=== PATIENT | male | born 1940 | race Caucasian/White ===

== ENCOUNTER → 2020-06-04 | Outpatient (CLI) | payer OTHER ==
[~2020-06-04] MED LIST: ASA81BEC PO; CLARITIN10 M3 PO; EFFIENT10 MG PO; LISINOPRIL5 MG PO; LUTEIN10 MG PO; MAGNESIUM400 MG PO; ROSUVASTATIN CA20 MG PO; SAW PALMETTO160 MG PO
== END ==
LOC: SJCVCIMAG 13:41
PROVIDERS: ATTEND Nuclear Medicine Nuclear Cardiology
DX: I65.23 Occlusion and stenosis of bilateral carotid arteries (principal); I10 Essential (primary) hypertension; E78.00 Pure hypercholesterolemia, unspecified; I77.9 Disorder of arteries and arterioles, unspecified; Z79.82 Long term (current) use of aspirin; Z79.899 Other long term (current) drug therapy

== ENCOUNTER 2020-06-06 10:28 | Observation (INO) | payer OTHER ==
[~2020-06-06] VITALS: Ht 182.9 cm; Wt 112.5 kg
[2020-06-06 11:08] VITALS: BP 144/79
[2020-06-06] MEDS ORDERED: ASA81BEC PO (11:17)
[2020-06-06] MEDS ORDERED: CLARITIN10 M3 PO (11:18)
[2020-06-06] MEDS ORDERED: LISINOPRIL5 MG PO (11:18)
[2020-06-06] MEDS ORDERED: MAGNESIUM400 MG PO (11:19)
[2020-06-06] MEDS ORDERED: LUTEIN10 MG PO (11:19)
[2020-06-06] MEDS ORDERED: SAW PALMETTO160 MG PO (11:20)
[2020-06-06] MEDS ORDERED: ROSUVASTATIN CA20 MG PO (11:20)
[2020-06-06 11:21] LABS: HEMATOCRIT 45.2 % (42.0-52.0); HEMOGLOBIN 14.9 gm/dL (14.0-18.0); MCH 31.5 pg (26.0-34.0); MCHC 32.9 g/dL (28.0-37.0); MCV 95.8 fL (80.0-100.0); RBC 4.72 mil/uL (4.50-6.00); RDW 14.8 % (10.5-14.5); WBC 6.1 thou/uL (4.0-11.0)
[2020-06-06 11:30] LABS: CALCIUM 9.3 mg/dL (8.5-10.1); CREATININE 1.2 mg/dL (0.7-1.3); POTASSIUM 4.8 mmol/L (3.5-5.1)
[2020-06-06 17:00] VITALS: BP 136/78
[2020-06-06 17:12] LABS: ALBUMIN 3.3 g/dL (3.4-5.0); CALCIUM 8.7 mg/dL (8.5-10.1); CREATININE 1.1 mg/dL (0.7-1.3); POTASSIUM 4.2 mmol/L (3.5-5.1); TOTAL BILIRUBIN 0.5 mg/dL (0.2-1.0); TOTAL PROTEIN 6.4 g/dL (6.4-8.2)
[2020-06-06 17:14] LABS: APTT 28.5 Seconds (24.5-32.8); PROTIME 10.9 Seconds (9.3-11.4)
--- NOTE | 2020-06-06 17:57 | NUR ---
PT ADMITTED TO CCU AT 1650 FROM CARDIAC FUR [facility]ISHER SEAM[facility]ESS. RIGHT GROIN SITE IS C/D/I, PT AND FAMILY HAVE BEEN EDUCATED ON S/S THAT NEED TO BE BROUGHT TO NURSE. PT ON BEDREST UNTIL 1900. PLAN IS TO DC HOME TONIGHT. STENTS TO BE COMPLETED BY DR GONZALEZ NEXT WEEK. AND DR BARRAZA AFTER THAT. NEEDS 2 VIEW CXR BEFORE BEING DISCHARGED. PT AND DAUGHTER HAVE BEEN UPDATED AND EDUCATED ON PT CONDITION AND POC. PT PROGRESSING TOWARDS POC.
[2020-06-06 20:30] VITALS: BP 149/85
--- NOTE | 2020-06-07 01:12 | NUR ---
VERBAL ORDER RECEIVED FOR DISCHARGE FROM DR. GONZALEZ; PATIENT VERBALIZED UNDERSTANDING OF POST-CATH INSTRUCTIONS; PATIENT PROVIDED TELEPHONE NUMBER TO FOR FOLLOW-UP WITH CARDIOLOGY; PATIENT PERIPHERAL IV REMOVED WITHOUT COMPLICATIONS; RT GROIN SITE C/D/I AND NO HEMATOMA OR PAIN NOTED ON PALPATION; PATIENT STABLE AND DRESSED AND AMBULATED INDEPENDENTLY TO WHEELCHAIR AND ESCORTED BY RN TO PATIENT FAMILY MEMBER WAITING AT ED ENTRANCE.
--- NOTE | 2020-06-07 07:11 | EKG ---
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: SBULGINA : 1940 Requested By: Helio Mccann Order Number: [id number] : Jose Luis Armijo Measurements Intervals [place] Rate: 82 P: 53 IA: 147 QRS: 50 QRSD: 92 T: 37 QT: 377 QTc: 441 Interpretive Statements Sinus rhythm Compared to ECG 09/14/1992 22:55:00 T-wave abnormality no longer present Electronically Signed On 06-07-2020 7:10:52 MACHINE FARMWORKER by Jose Luis Armijo [email or web address] <ELECTRONICALLY SIGNED> By: Jose Luis Armijo MD, [facility] 06/07/20 0710 1101 00 Jose Luis Armijo MD, FACC /EPI
--- NOTE | 2020-06-09 08:24 | HC ---
[facility] [place] [address] CONSULTATION Name: SARAH SHEPHERD Room #: 217-P [facility] Violeta Finn#: [id number] Admission: 06/06/20 Attend Phys: Helio Mccann MD Discharge: 06/06/20 Date of : 40 Report #: [id number] THIS REPORT FOR: cc: Scott Almazan James R. DO Forman, John M. MD ~ DATE OF SERVICE: 06/06/2020 We are asked to see the patient by Dr. Mccann and Dr. Root. HISTORY OF PRESENT ILLNESS: The patient is a 79-year-old who states he initially had a vascular screening that showed a high-grade carotid stenosis. This led to carotid and cardiac catheterization today. The patient denies such problems as transient ischemic attack or stroke or amaurosis fugax. The patient states that he is less robust than he was in his younger days and does get some fatigue with exertion, but has no history of angina. Today, the carotid arteriogram demonstrates a 90% left internal carotid stenosis, somewhat distant from the bifurcation. The coronary angiogram shows proximal LAD stenosis, circumflex marginal 1 and 2 lesions along with some distal disease in the LAD, PDA, and posterolateral. Left ventricular function is satisfactory by ventriculogram. PAST HISTORY: The patient has hypertension. He denies diabetes mellitus. SOCIAL HISTORY: The patient is an active [place]. No smoking history. MEDICATIONS: Includes Flonase nasal spray, lisinopril, Claritin, Lutein, magnesium oxide, and rosuvastatin. The patient had an arm infection, on which he was applying mupirocin. REVIEW OF SYSTEMS: GENERAL: Denies significant change in weight, fevers. EYES: Denies recent vision change. ENT: Denies hearing loss or chronic sinus issues. CARDIAC: As mentioned, some mild fatigue with exertion, but this is not limiting. No angina, no palpitations. RESPIRATORY: Denies cough or shortness of breath. GASTROINTESTINAL: Denies nausea, vomiting, or blood in stool. GENITOURINARY: Denies urgency or frequency. Takes saw angeline for prostate issues and has for 30 years. MUSCULOSKELETAL: No new bone or joint problems. 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 This does appear to be healing. ENDOCRINE: No goiter, no tremor. NEUROLOGIC: No motor or sensory dysfunction. HEMATOLOGIC: No bruisability or bleeding. PHYSICAL EXAMINATION: GENERAL: The patient is lying in bed, post-catheterization. Blood pressure 130/70, heart rate 96. HEENT: No scleral icterus, no arcus. NECK: No mass. I hear no bruit. CHEST: Clear to auscultation. HEART: Rhythm regular, no murmur. ABDOMEN: Soft. EXTREMITIES: No clubbing, cyanosis, or edema. 2+ posterior tibial pulses bilaterally, 2+ popliteal pulses bilaterally. PSYCHIATRIC: Shows insight into problem. Oriented x 3 and is appropriate. ASSESSMENT AND PLAN: I reviewed the catheterization findings with the patient and his daughter. There is important coronary artery disease including the proximal LAD and circumflex marginal lesions. The tight left internal carotid lesion was also discussed. The carotid lesion is amenable to trans-carotid arterial revascularization and this may even be preferable with more distant extent of the lesion. Risks and details of this were discussed. Options and alternatives were reviewed. I also discussed the coronary disease and the options for treatment. This would include bypass surgery or angioplasty. Angioplasty may not address the more distal LAD issue, but it certainly would treat the proximal LAD and the circumflex marginal lesions; and in light of the patient's paucity of symptoms and advanced age, this may be appropriate. Prior to TCAR, we need to have the patient on aspirin, Plavix, and statin. The patient will be on the statin after the stent placement and so we could plan for TCAR 5-7 days after coronary stents are placed. All of this will be reviewed by and with Dr. Mccann and Dr. Root, so that we can formulate a plan. Thank you for the consult. <ELECTRONICALLY SIGNED> By: Rm Ramon MD 06/09/20 0824 1628 1715 Rm Ramon MD /nt
--- NOTE | 2020-06-09 15:17 | CATHLAB ---
[facility] [place] [address] INVASIVE PROCEDURE REPORT Name: SARAH SHEPHERD Room #: 217-P [facility] Violeta Finn#: [id number] Admission: 06/06/20 Attend Phys: Helio Mccann MD Discharge: 06/06/20 Date of : 40 Report #: [id number] THIS REPORT FOR: cc: Scott Almazan James R. DO Mancuso, Gerald M. MD [facility] ~ APPROVED REPORT Study performed: 06/06/2020 14:37:46 Patient Details Patient Status: Out-Patient Room #: The patient is a 79 year-old male Event Personnel Helio Mccann Radiologist, Deon Root Linemarker, Reji Chávez RN, Marilyn Lara RTR Ilya, Lyn Miner Monitor Procedures Performed Left Heart Cath w/or w/o Coronaries [id number] [facility] 58808 Initial Mod Sed Same Phys/QHP Gr 215522 10272 Mod Sed Same Phys/QHP Ea 779777 Hemostasis w/ Mynx Indication Chest pain Procedure Narrative A SHEATH BRITE-TIP 6F X 11CM ([id number]) sheath was inserted into the RFA^. Coronary angiography was performed using coronary diagnostic catheters. The right coronary system was accessed and visualized with a JR4 catheter. The left coronary system was accessed and visualized with a JL4 catheter. The left ventricle was accessed and visualized with a ANGLE PIG catheter. Left ventriculogram was performed in 30 degree projection. There was no hematoma. Intraoperative Conscious Sedation Sedation start time: 1510 Case end Time: 1535 Fentanyl 100 mcg Versed 2 mg Fluoro Time: 7.30 minutes Dose: DAP 48335.40 cGycm2 299. mGy Contrast Type and Amount: Omnipaque 253 ml [facility] [place] [address] INVASIVE PROCEDURE REPORT Name: JOAOSARAH Bautista Room #: 217-P [facility]#: [id number] Admission: 06/06/20 Attend Phys: Helio Mccann, Discharge: 06/06/20 Date of : 40 Report #: [id number] Hemodynamics The aortic pressure is 137/67 mmHg with a mean of 97 mmHg. The left ventricular pressure is 146/12 mmHg with a mean of mmHg. The left ventricular end diastolic pressure is 20 mmHg. Conclusion #1. Normal left ventricular size systolic function lower limits of normal EF 50 to 55%. #2 left main mildly disease giving rise to LAD and circumflex. 40 to 50% ostial left main lesion noted #3 the LAD is an eccentric 80% lesion just off the left main with mild calcification. This vessel is and moderately diseased in its midsection 60 and 70% diffuse disease somewhat attenuated to the apex. #4 circumflex OM is nondominant but large in distribution. The first OM branch has a high-grade lesion of 80 to 90% and then the mid circumflex after that OM takeoff which fills the distal OM has a 95% eccentric lesion. Mild calcification is noted. #5 dominant right coronary artery with mild disease 3040% mid vessel mild disease in the PDA DILCIA Recommendations and plan: Continue aggressive risk factor modification. Will need CV surgical consultation consideration of bypass versus revascularization by coronary stent. Also patient with high-grade carotid stenosis further recommendations to follow. <ELECTRONICALLY SIGNED> By: Deon Root MD, FACC 06/09/20 1517 1517 1517 Deon Root MD, FACC /INF
== END 2020-06-06 20:20 | disposition home or self-care (01) ==
LOC: CATH 10:28 → 2N 16:43
PROVIDERS: Surgery Vascular Surgery; ADMIT Internal Medicine Cardiovascular Disease; ATTEND Nuclear Medicine Nuclear Cardiology
DX: I25.10 Atherosclerotic heart disease of native coronary artery without angina pectoris (principal); I63.29 Cerebral infarction due to unspecified occlusion or stenosis of other precerebral arteries; I10 Essential (primary) hypertension; I70.1 Atherosclerosis of renal artery; I73.9 Peripheral vascular disease, unspecified; Z79.899 Other long term (current) drug therapy

== ENCOUNTER 2020-06-11 06:26 | Observation (INO) | payer OTHER ==
[~2020-06-11] VITALS: Ht 182.9 cm; Wt 112.5 kg
[~2020-06-11 06:26] MED LIST changes: -EFFIENT10 MG PO
[2020-06-11 07:33] VITALS: BP 113/77
[2020-06-11 12:21] LABS: ABSOLUTE NEUTROPHILS 2.9 thou/uL (1.4-8.2); BASOPHILS 0.7 % (0.0-2.0); EOSINOPHILS 4.1 % (0.0-3.0); HEMATOCRIT 43.1 % (42.0-52.0); HEMOGLOBIN 14.2 gm/dL (14.0-18.0); LYMPHOCYTES 27.3 % (24.0-44.0); MCH 31.4 pg (26.0-34.0); MCV 95.3 fL (80.0-100.0); MONOCYTES 8.4 % (1.0-8.0); PLATELET COUNT 148 thou/uL (150-400); POLYS 59.5 % (36.0-66.0); RBC 4.53 mil/uL (4.50-6.00); RDW 14.4 % (10.5-14.5); WBC 4.8 thou/uL (4.0-11.0)
[2020-06-11 14:58] LABS: URINE BILIRUBIN NEGATIVE (Negative); URINE BLOOD NEGATIVE (Negative); URINE CLARITY CLEAR; URINE COLOR YELLOW; URINE GLUCOSE-RANDOM* NEGATIVE (Negative); URINE KETONES NEGATIVE (Negative); URINE LEUKOCYTES-REFLEX NEGATIVE (Negative); URINE NITRITE-REFLEX NEGATIVE (Negative); URINE PROTEIN (DIPSTICK) NEGATIVE (Negative); URINE SPECIFIC GRAVITY <= 1.005 (1.005-1.035); URINE UROBILINOGEN 0.2 E.U./dl (0.2-1.0)
[2020-06-11] MEDS ORDERED: EFFIENT10 MG PO (17:23)
--- NOTE | 2020-06-11 17:58 | CATHLAB ---
[facility] [place] [address] INVASIVE PROCEDURE REPORT Name: SARAH SHEPHERD Room #: 205-P ADM Violeta Finn#: [id number] Admission: 06/11/20 Attend Phys: Deon Root MD, Discharge: Date of : 40 Report #: [id number] THIS REPORT FOR: cc: Scott Almazan James R. DO Mancuso, Gerald M. MD [facility] ~ APPROVED REPORT Study performed: 06/11/2020 07:49:06 Patient Details Patient Status: Out-Patient Room #: The patient is a 79 year-old male Event Personnel Deon Root Ammonium Nitrate Neutralizer, Mario Urbano RN RN, Marilyn Lara RTR Scrub, Prasad Miranda RTR Monitor, Dorene Narvaez RTR Aquatic Facility Manager Procedures Performed Art Access - R femoral artery* 88752 Initial Mod Sed Same Phys/QHP Gr5y 446579 06026 Mod Sed Same Phys/QHP Ea 893810 GELA Place w/wo Plasty Single LAD 261976 GELA Place w/wo Plasty Single OM 471987 Hemostasis w/ Mynx Indication Chest pain Procedure Narrative The Right Groin^ was infiltrated with 1% Lidocaine subcutaneous anesthesia. A PINNACLE 6FR Sheath #[id number] sheath was inserted into the RFA^. Coronary angiography was performed using coronary diagnostic catheters. Closure device was deployed with a 6 Fr MYNXGRIP 6/7F #117505. The patient tolerated the procedure well and there were no complications associated with the procedure. There was no hematoma. Intraoperative Conscious Sedation Sedation start time: 827 Case end Time: 949 Fentanyl 50 mcg Versed 1 mg Fluoro Time: 18.10 minutes Dose: DAP 98746.60 cGycm2 4284 mGy Contrast Type and Amount: Omnipaque 240 ml [facility] [place] [address] INVASIVE PROCEDURE REPORT Name: JOAOSARAH Michele Room #: 205-P [facility] IN M.R.#: [id number] Admission: 06/11/20 Attend Phys: Deon EchavarriaAlberto Dk, Discharge: Date of : 40 Report #: [id number] Hemodynamics The aortic pressure is 126/71 mmHg with a mean of 89 mmHg. PCI Technique Lesion Percutaneous coronary intervention was performed on the proximal left anterior descending artery segment. A LAUNCHER 6FR EBU 3.75 #736603 Guide Catheter was used to engage the ostium. A Luge Wire .014 x 182CM #[id number] Interventional Guidewire was used to cross the lesion. BALLOON DILATION A Balloon catheter Sprinter OTW 2.5 x 12 #[id number] was inserted and inflated up to 10.00atm for 20seconds. STENT DEPLOYMENT A drug-eluting stent RESOLUTE CHRISTIAN OTW 3.0 X 8 #[id number] was inserted and inflated up to 16.00atm for 26seconds. POST STENT DEPLOYMENT BALLOON DILATION A Balloon catheter TREK NC OTW 3.25 X 8 was inserted and inflated up to 16.00atm for 15seconds. Additional Inflation: 18.00atm for 14seconds. Additional Inflation: 20.00atm for 15seconds. PCI Technique Lesion 2 Percutaneous coronary intervention was performed on the first obtuse marginal branch segment. A LAUNCHER 6FR EBU 3.75 #280061 Guide Catheter was used to engage the ostium. A Luge Wire .014 x 182CM #[id number] Interventional Guidewire was used to cross the lesion. Balloon Dilation A Balloon catheter Sprinter OTW 2.5 x 12 #[id number] was inserted and inflated up to 8atm for 20seconds. Additional Inflation: 12atm for 19seconds. Additional Inflation: 10atm for 16seconds. Stent Deployment A drug-eluting stent RESOLUTE CHRISTIAN OTW 2.75 X 12 #[id number] was inserted and inflated up to 12atm for 24seconds. PCI Technique Lesion 3 Percutaneous coronary intervention was performed on the second obtuse marginal branch segment. A LAUNCHER 6FR EBU 3.75 #661029 Guide Catheter was used to engage the ostium. A Luge Wire .014 x 182CM #488127 Interventional Guidewire was used to cross the lesion. [facility] [address] [place] [address] INVASIVE PROCEDURE REPORT Name: SARAH SHEPHERD Room #: 205-P [facility] IN M.RAlberto#: [id number] Admission: 06/11/20 Attend Phys: Deon Root, Discharge: Date of : 40 Report #: [id number] Balloon Dilation A Balloon catheter Sprinter OTW 2.5 x 12 #[id number] was inserted and inflated up to 12atm for 19seconds. Additional Inflation: 12atm for 13seconds. Additional Inflation: 12atm for 15seconds. Stent Deployment A drug-eluting stent RESOLUTE CHRISTIAN OTW 2.75 X 18 #[id number] was inserted and inflated up to 14atm for 30seconds. Conclusion #1. Successful PTCA stent of an ostial LAD just off of left main. Placement of a 3.0 x 8 resolute [place] posterior with a noncompliant balloon to 3.5 mm HOMER grade III flow moderate disease in the mid distal LAD. #2 successful PTCA of a mid circumflex 90% lesion to 0% with placement of a 2.75 x 12 resolute Christian HOMER grade III flow. #3 successful PTCA stent of a large first OM long lesion in the mid vessel 80% to 0% with placement of a 2.75 x 18 resolute Christian HOMER grade III flow. #4 ostial left main lesion of approximately 50% we will follow this. Recommendations and plan: We will institute dual antiplatelet therapy. Significant three-vessel disease also subsequently stented as noted above. Patient tolerated well this was a staged procedure. Diagnostic angiogram was done previously. Had CV surgical consultation felt best to proceed with stenting these lesions and then proceed with carotid intervention carotid endarterectomy. 1 to 2 weeks. Hemodynamically stable will transfer to CCU to follow post coronary stent protocol. <ELECTRONICALLY SIGNED> By: Deon Root MD, FACC 06/11/201756 56 56 Deon Root MD, FACC /INF
[2020-06-11 19:59] VITALS: BP 116/64
[2020-06-11 20:00] VITALS: BP 116/64
[2020-06-12 05:32] LABS: HEMATOCRIT 42.3 % (42.0-52.0); MCH 31.6 pg (26.0-34.0); MCHC 33.1 g/dL (28.0-37.0); MCV 95.3 fL (80.0-100.0); RBC 4.44 mil/uL (4.50-6.00); RDW 14.6 % (10.5-14.5); WBC 6.5 thou/uL (4.0-11.0)
[2020-06-12 05:48] LABS: ALBUMIN 3.1 g/dL (3.4-5.0); CALCIUM 8.7 mg/dL (8.5-10.1); CREATININE 1.2 mg/dL (0.7-1.3); POTASSIUM 4.5 mmol/L (3.5-5.1); TOTAL BILIRUBIN 0.6 mg/dL (0.2-1.0); TOTAL PROTEIN 6.4 g/dL (6.4-8.2); TROPONIN-I 0.21 ng/mL (<0.06)
[2020-06-12 07:50] VITALS: BP 119/68
[2020-06-12 08:00] VITALS: BP 114/70
--- NOTE | 2020-06-12 08:17 | EKG ---
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 Specialist: CHELSEY : 1940 Requested By: Ashanti Pickard Order Number: [id number] MD: Geraldo Wang Measurements Intervals [place] Rate: 93 P: 66 TN: 146 QRS: 72 QRSD: 88 T: 48 QT: 335 QTc: 417 Interpretive Statements Sinus rhythm Abnormal R-wave progression, late transition Compared to ECG 06/06/2020 11:01:17 No significant changes Electronically Signed On 06-12-2020 8:16:57 ACCIDENT EXAMINER by Geraldo Wang [email or web address] <ELECTRONICALLY SIGNED> By: Geraldo Wang MD, [facility] 06/12/20815 2 2 Geraldo Wang MD, FAC /EPI
[2020-06-12 11:27] VITALS: BP 114/70
[2020-06-12 12:00] VITALS: BP 114/70
[2020-06-12 13:57] VITALS: BP 114/70
== END 2020-06-12 16:22 | disposition home or self-care (01) ==
LOC: CATH 06:26 → 2N 13:45
PROVIDERS: Nurse Practitioner Adult Health; Surgery Vascular Surgery; ADMIT Internal Medicine Cardiovascular Disease; ATTEND Internal Medicine Cardiovascular Disease
DX: I25.10 Atherosclerotic heart disease of native coronary artery without angina pectoris (principal); I10 Essential (primary) hypertension; I65.29 Occlusion and stenosis of unspecified carotid artery; E78.5 Hyperlipidemia, unspecified; E78.00 Pure hypercholesterolemia, unspecified; Z79.82 Long term (current) use of aspirin; Z79.899 Other long term (current) drug therapy

== ENCOUNTER → 2020-06-17 | Outpatient (CLI) | payer OTHER, MEDICARE ==
[~2020-06-17] MED LIST changes: +EFFIENT10 MG PO
== END ==
LOC: LAB 09:25
PROVIDERS: ATTEND Surgery Vascular Surgery
DX: Z01.812 Encounter for preprocedural laboratory examination (principal); Z20.822 Contact with and (suspected) exposure to COVID-19

== ENCOUNTER 2020-06-20 06:12 | Inpatient (IN) | payer OTHER, MEDICARE ==
[2020-06-20] VITALS (10 sets, daily range): BP systolic 85–133; BP diastolic 49–71
[~2020-06-20] VITALS: Ht 182.9 cm; Wt 77.5 kg
--- NOTE | 2020-06-20 17:43 | NUR ---
ADMITTED FROM PACU TO RM 250, CARDENE DRIP OFF BUT RESTARTED AT 5MG/HR FOR SBP OF 135-140. INCREASED TO 7.5MG/HR SHORTLY AFTER. R RADIAL CLARISSE WITH GOOD WAVEFORM. ZEROED AND HEPARIN BAG REPLACED WITH NS. NO COMPLAINTS OF PAIN AT GROIN SITE OR ENDARECTOMY SITE, BOTH DRESSINGS CDI
[2020-06-21] VITALS (16 sets, daily range): BP systolic 97–148; BP diastolic 51–74
--- NOTE | 2020-06-21 04:16 | NUR ---
ASSUMED PT CARE AT 1900. VSS PT A&0X4. R GROIN SITE REMAINS CDI. LEFT NECK ACCESS SITE SLIGHTY BRUISED WITH DRIED PINK DRAINAGE SINCE OR. PT TITRATED OFF CARDENE GTT SINCE 11PM LAST NOC. PT'S BP HAS BEEN STABLE SINCE WITH SYSTOLIC BTW 110S-120S. A LINE REMAINS INTACT. NO NEW EVENTS OVER NOC. PT IS STABLE; WILL CONTINUE TO MONITOR PER POC.
[2020-06-21 05:48] LABS: HEMATOCRIT 35.3 % (42.0-52.0); HEMOGLOBIN 11.8 gm/dL (14.0-18.0); MCH 31.9 pg (26.0-34.0); MCHC 33.4 g/dL (28.0-37.0); MCV 95.5 fL (80.0-100.0); RBC 3.69 mil/uL (4.50-6.00); WBC 8.7 thou/uL (4.0-11.0)
[2020-06-21 06:10] LABS: CALCIUM 8.4 mg/dL (8.5-10.1); CREATININE 1.1 mg/dL (0.7-1.3); POTASSIUM 4.6 mmol/L (3.5-5.1)
--- NOTE | 2020-06-21 10:55 | NUR ---
chart review. discussed during am rounds. cm visit with pt at bedside, cm cont to wear face mask and shield during visit. pt up in recliner care, able to make needs known. reports home and wont need anything, son lives next door. will cont following as needed for dc needs. dcp home
--- NOTE | 2020-06-21 13:08 | EKG ---
[address] [address] ELECTROCARDIOGRAM REPORT Name: JOAOSARAHAUGUSTO OMER Room #: 250-P ADM IN M.R.#: [id number] Admission: 06/20/20 Attend Phys: Rm Ramon MD Discharge: Date of : 40 Report #: [id number] 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
--- NOTE | 2020-06-21 17:35 | NUR ---
1735 PATIENT PROGRESSING TOWARDS PLAN OF CARE EVIDENCED BY BLOOD PRESSURE 100-120'S, WITHIN PHYSICIAN DESIRED FRAME, NO PAIN, UP WITH STANDBY ASSISTANCE, TRAVIS OUT, ABLE TO VOID. PLAN IS FOR PATIENT TO DISCHARGE TOMORROW.
[2020-06-22 04:15] VITALS: BP 121/69
--- NOTE | 2020-06-22 07:04 | NUR ---
PT WITH OUT C/O PAIN, VSS, DRESSINGS REMAIN CDI, UP AMBULATING IN [place] THIS AM, HOPES TO GO HOME TODAY, WILL CON'T TO MONITOR PER PPOC.
[2020-06-22 08:15] VITALS: BP 119/78
--- NOTE | 2020-06-22 10:08 | NUR ---
ASSUMED CARE FOR PT AT 0700. PT ASSESSMENT PERFORMED. VSS. PT STATES HE HAS BEEN WALKING THE HALLS AND IS PREPARED TO BE DC TO HOME TODAY. WILL CONTINUE TO MONITOR.
--- NOTE | 2020-06-22 11:15 | O ---
[facility] [place] [address] OPERATIVE REPORT Name: SARAH SHEPHERD Room #: 205-P ADM IN M.R.#: [id number] Admission: 06/20/20 Attend Phys: Rm Ramon MD Discharge: Date of : 40 Report #: [id number] THIS REPORT FOR: cc: Scott Almazan,Rm Vinson MD ~ DATE OF SERVICE: 06/20/2020 PREOPERATIVE DIAGNOSIS: Left internal carotid artery stenosis. POSTOPERATIVE DIAGNOSIS: Left internal carotid artery stenosis. OPERATION: Transcarotid arterial revascularization, clinically left with intraoperative arteriograms. SURGEON: Dr. Rm Ramon and Dr. Helio Mccann. FIRE FIGHTING EQUIPMENT SPECIALIST: MANUEL Myers. ANESTHESIA: General. INDICATIONS: The patient is a 79-year-old with a 90% left internal carotid stenosis. This has been asymptomatic. The right side has trivial disease. FINDINGS AND TECHNIQUE: After general anesthesia was established, an incision was made at the base of the left neck to expose the common carotid artery. Vascular loops were placed around the carotid and then the pursestring for introduction of the TCAR device was placed. Separately, the right femoral vein was identified with the ultrasound and entered with the vascular needle, followed by guidewire, dilators and sheaths. 10,000 units of heparin were given and ACT was ascertained to be above the required number. The common carotid was entered with the arterial needle and a guidewire was passed, followed by the small catheter and through the catheter, the larger guidewire was placed and then the TCAR catheter was placed and secured in position. The shunt was connected between the common carotid and the right femoral vein and good flow through the shunt was ascertained. The left common carotid was occluded and an arteriogram was taken to demonstrate the lesion. [facility] [address] [place] [address] OPERATIVE REPORT Name: SARAH SHEPHERD Room #: 205-P [facility] IN .R.#: [id number] Admission: 06/20/20 Attend Phys: Rm Ramon MD Discharge: Date of : 40 Report #: [id number] Predilatation was done with a 4.5 x 30 Cordis Aviator balloon and then a 9 x 30 ENROUTE transcarotid stent was placed into the left internal carotid. Post-balloon dilatation was done with 5.0 x 20 Cordis Aviator balloon. After waiting the required amount of time, an arteriogram was taken that showed good dilatation of the lesion and good flow through the carotid. The shunt was disconnected and forward flow was reestablished. The carotid introducer was removed and the pursestring was tied taut. Additional suture was placed in the carotid entry. The femoral venous end of this fistula was removed and pressure was applied. Protamine was given to reverse the heparin. Hemostasis was ascertained, which took a bit longer than typical due to the Effient involved and when hemostasis was satisfactory, the wound was closed in layers. The patient was taken to the recovery area in good condition. All counts reported as correct. It should be mentioned that blood pressure and heart rate were satisfactory throughout the case. All counts reported as correct. <ELECTRONICALLY SIGNED> By: Rm Ramon MD 06/22/20 1115 1040 1111 Rm Ramon MD /nt
[2020-06-22 11:19] VITALS: BP 119/78
== END 2020-06-22 12:28 | disposition home or self-care (01) | DRG 35 ==
LOC: CANPREIN → TBA 06:12 → ICU 06:12 → PRE 08:31 → ICU 13:54 → 2N 06-21 18:21
PROVIDERS: Physician Assistant; ADMIT Surgery Vascular Surgery; ATTEND Surgery Vascular Surgery
PROC: 037L3DZ Dilation of Left Internal Carotid Artery with Intraluminal Device, Percutaneous Approach (ICD-10-PCS; principal; 2020-06-20)
DX: I65.22 Occlusion and stenosis of left carotid artery (principal); D68.69 Other thrombophilia; I25.10 Atherosclerotic heart disease of native coronary artery without angina pectoris; D64.9 Anemia, unspecified; I10 Essential (primary) hypertension; E78.5 Hyperlipidemia, unspecified; Z96.611 Presence of right artificial shoulder joint; Z98.42 Cataract extraction status, left eye; Z98.41 Cataract extraction status, right eye; Z95.5 Presence of coronary angioplasty implant and graft; Z79.82 Long term (current) use of aspirin; Z79.899 Other long term (current) drug therapy
CPT/HCPCS: 10078; 10797; 47375; 50010; 50101; 51301; 52287; 54118; 56524; 56526; 56528; 62110; 62900; 65020; 65040; 70005

== ENCOUNTER → 2020-07-16 | Outpatient (CLI) | payer OTHER, MEDICARE | LOC: SJCVCIMAG 09:39 | PROVIDERS: ATTEND Nuclear Medicine Nuclear Cardiology | DX: I65.21 Occlusion and stenosis of right carotid artery (principal); I77.9 Disorder of arteries and arterioles, unspecified; I25.10 Atherosclerotic heart disease of native coronary artery without angina pectoris; I10 Essential (primary) hypertension; E78.00 Pure hypercholesterolemia, unspecified; Z87.891 Personal history of nicotine dependence; Z72.89 Other problems related to lifestyle; Z79.82 Long term (current) use of aspirin; Z79.899 Other long term (current) drug therapy ==

== ENCOUNTER → 2021-02-05 | Outpatient (CLI) | payer OTHER, MEDICARE | END | disposition home or self-care (01) | LOC: SJCVCIMAG 06:48 | PROVIDERS: ATTEND Internal Medicine Cardiovascular Disease | DX: I65.21 Occlusion and stenosis of right carotid artery (principal); R94.31 Abnormal electrocardiogram [ECG] [EKG]; E78.00 Pure hypercholesterolemia, unspecified; I25.10 Atherosclerotic heart disease of native coronary artery without angina pectoris; I10 Essential (primary) hypertension; I77.9 Disorder of arteries and arterioles, unspecified; E78.5 Hyperlipidemia, unspecified; Z79.82 Long term (current) use of aspirin; Z79.899 Other long term (current) drug therapy; Z98.890 Other specified postprocedural states ==